=== PATIENT | female | born 1970 | race Caucasian/White ===

== ENCOUNTER 2016-12-27 22:52 | Emergency (ER) | payer SELFPAY ==
[~2016-12-27] VITALS: Ht 156.2 cm; Wt 52.2 kg
[2016-12-27] MEDS ORDERED: IPRATRPIUM/ALBUTEROL 0.5/2.5MG 3 ML NEBU. ONE (23:23)
[2016-12-27] MEDS ORDERED: ALBUTEROL SULFATE 2.5 MG/3 ML NEBU. ONE (23:24)
[2016-12-27 23:28] LABS: BASO % 1 % (0-3); EOS % 1 % (0-3); HEMATOCRIT 43.9 % (36.0-47.0); HEMOGLOBIN 15.1 g/dL (12.0-15.5); LYMPH # 2.7 x10^3/uL (1.0-4.8); LYMPH % 30 % (24-48); MEAN CORPUSCULAR HEMOGLOBIN 33 pg (25-35); MEAN CORPUSCULAR HGB CONC 34 g/dL (31-37); MEAN CORPUSCULAR VOLUME 96 fL (79-100); MONO % 9 % (0-9); NEUT % 59 % (31-73); PLATELET COUNT 260 x10^3/uL (140-400); RED BLOOD COUNT 4.58 x10^6/uL (3.50-5.40); RED CELL DISTRIBUTION WIDTH 12.3 % (11.5-14.5); WHITE BLOOD COUNT 8.8 x10^3/uL (4.0-11.0)
[2016-12-27] MEDS ORDERED: ALBUTEROL SULFATE 2.5 MG/3 ML NEBU. NEB ONE (23:30)
[2016-12-27] MEDS ORDERED: fentaNYL PF VIAL 100 MCG/2 ML VIAL IV ONE (23:30)
[2016-12-27] MEDS ORDERED: DEXAMETHASONE SOD PHOS 20 MG/5 ML VIAL. IV ONE (23:30)
[2016-12-27] MEDS ORDERED: IPRATRPIUM/ALBUTEROL 0.5/2.5MG 3 ML NEBU. NEB ONE (23:30)
[2016-12-27] MEDS ORDERED: ASPIRIN ENTERIC COATED 325 MG TABLET.DR. PO ONE (23:30)
[2016-12-27] MEDS ORDERED: IV NORMAL SALINE 1000ML BAG 1,000 ML IV ONE (23:30)
[2016-12-27] MEDS ORDERED: KETOROLAC TROMETHAMINE 30 MG/ML INJ. IV ONE (23:30)
[2016-12-27 23:38] LABS: INR 0.9 (0.8-1.1); PARTIAL THROMBOPLASTIN TIME 32 SEC (24-38); PROTHROMBIN TIME PATIENT 11.9 SEC (11.7-14.0)
[2016-12-27 23:41] LABS: BILIRUBIN,URINE NEGATIVE (NEG); GLUCOSE,URINE NEGATIVE (NEG); NITRITE,URINE NEGATIVE (NEG); PH,URINE 6.5; PROTEIN,URINE NEGATIVE (NEG-TRACE); UROBILINOGEN,URINE 0.2 mg/dL (0.2 mg/dL)
[2016-12-27 23:41] LABS: CALCIUM 9.1 mg/dL (8.5-10.1); CREATININE 0.6 mg/dL (0.6-1.0); GFR 108.1; POTASSIUM 3.3 mmol/L (3.5-5.1)
[2016-12-27 23:47] LABS: ALBUMIN 3.9 g/dL (3.4-5.0); ALBUMIN/GLOBULIN RATIO 1.1 (1.0-1.7); MAGNESIUM 1.8 mg/dL (1.8-2.4); TOTAL BILIRUBIN 0.3 mg/dL (0.2-1.0); TOTAL PROTEIN 7.4 g/dL (6.4-8.2)
[2016-12-27 23:49] LABS: BACTERIA,URINE 0 /HPF (0-FEW); RBC,URINE OCC /HPF (0-2); SQUAMOUS EPITHELIAL CELL,UR FEW /LPF
--- NOTE | 2016-12-28 00:05 | PHYS DOC ---
Past Medical History Past Medical History: Unknown Past Surgical History: Other Additional Past Surgical Histo: Rt finger Alcohol Use: None Drug Use: None Adult General Chief Complaint Chief Complaint: CHEST PAIN HPI HPI Patient is a 46 year old female presenting to the emergency department for evaluation of chest pain shortness of breath and not feeling well. The chest pain started approximately 2 hours prior to arrival while at rest and says it is tight in her left upper chest but sharp stabbing pain in her left lower chest. He says that it makes her feel somewhat short of breath but there is no nausea vomiting or diaphoresis. Patient denies any history of diabetes hypertension high cholesterol or family history of heart disease but she says that she does smoke cigarettes. Denies any prior cardiac risk stratification. She is in no obvious distress with normal vital signs except for her hypertension. Review of Systems Review of Systems Constitutional: Denies fever or chills [] Eyes: Denies change in visual acuity, redness, or eye pain [] HENT: Denies nasal congestion or sore throat [] Respiratory: + cough and shortness of breath [] Cardiovascular: + CP GI: Denies abdominal pain, nausea, vomiting, bloody stools or diarrhea [] : Denies dysuria or hematuria [] Musculoskeletal: Denies back pain or joint pain [] Integument: Denies rash or skin lesions [] Neurologic: Denies headache, focal weakness or sensory changes [] Current Medications Current Medications Current Medications Medications (Trade) Dose Ordered Sig/Cassi Start Time Stop Time Status Last Admin Dose Admin Albuterol Sulfate (Ventolin Neb Soln) 2.5 mg STK-MED ONCE 12/27/16 23:24 12/27/16 23:25 DC Albuterol/ Ipratropium (Duoneb) 3 ml STK-MED ONCE 12/27/16 23:23 12/27/16 23:24 DC Aspirin (Ecotrin) 325 mg 1X ONCE 12/27/16 23:30 12/27/16 23:31 DC 12/28/16 00:09 325 MG Dexamethasone Sodium Phosphate (Decadron) 10 mg 1X ONCE 12/27/16 23:30 12/27/16 23:31 DC 12/28/16 00:06 10 MG Fentanyl Citrate (Fentanyl 2ml Vial) 100 mcg 1X ONCE 12/27/16 23:30 12/27/16 23:31 DC 12/28/16 00:09 100 MCG Ketorolac Tromethamine (Toradol) 30 mg 1X ONCE 12/27/16 23:30 12/27/16 23:31 DC 12/28/16 00:01 30 MG Potassium Chloride (Klor-Con) 40 meq 1X ONCE 12/28/16 00:30 12/28/16 00:31 DC 12/28/16 00:51 40 MEQ Sodium Chloride 1,000 ml @ 1,000 mls/hr 1X ONCE 12/27/16 23:30 12/28/16 00:29 DC 12/28/16 00:00 1,000 MLS/HR Allergies Allergies Allergies Coded Allergies Type Severity Reaction Last Updated Verified No Known Drug Allergies 02/22/15 No Physical Exam Physical Exam Constitutional: Well developed, well nourished, no acute distress, non-toxic appearance. [] HENT: Normocephalic, atraumatic, bilateral external ears normal, oropharynx moist, no oral exudates, nose normal. [] Eyes: PERRLA, EOMI, conjunctiva normal, no discharge. [] Neck: Normal range of motion, no tenderness, supple, no stridor. [] Cardiovascular:Heart rate regular rhythm, no murmur [] Lungs & Thorax: Bilateral breath sounds decreased bilaterally with expiratory wheezes noted Abdomen: Bowel sounds normal, soft, no tenderness, no masses, no pulsatile masses. [] Skin: Warm, dry, no erythema, no rash. [] Back: No tenderness, no CVA tenderness. [] Extremities: No tenderness, no cyanosis, no clubbing, ROM intact, no edema. [] Neurologic: Alert and oriented X 3, normal motor function, normal sensory function, no focal deficits noted. [] Current Patient Data Vital Signs Vital Signs Date Time Temp Pulse Resp B/P (MAP) Pulse Ox O2 Delivery O2 Flow Rate FiO2 12/28/16 00:09 22 96 Room Air 12/27/16 23:05 98.0 100 202/112 (142) 98.0 Lab Values Laboratory Tests Test 12/27/16 23:06 12/27/16 23:19 Urine Collection Type Unknown Urine Color Yellow Urine Clarity Clear Urine pH 6.5 Urine Specific [place] 1.010 Urine Protein Negative mg/dL (NEG-TRACE) Urine Glucose (UA) Negative mg/dL (NEG) Urine Ketones (Stick) Negative mg/dL (NEG) Urine Blood Negative (NEG) Urine Nitrite Negative (NEG) Urine Bilirubin Negative (NEG) Urine Urobilinogen Dipstick 0.2 mg/dL (0.2 mg/dL) Urine Leukocyte Esterase Negative (NEG) Urine RBC Occ /HPF (0-2) Urine WBC 1-4 /HPF (0-4) Urine Squamous Epithelial Cells Few /LPF Urine Bacteria 0 /HPF (0-FEW) Urine Mucus Slight /LPF White Blood Count 8.8 x10^3/uL (4.0-11.0) Red Blood Count 4.58 x10^6/uL (3.50-5.40) Hemoglobin 15.1 g/dL (12.0-15.5) Hematocrit 43.9 % (36.0-47.0) Mean Corpuscular Volume 96 fL (79-100) Mean Corpuscular Hemoglobin 33 pg (25-35) Mean Corpuscular Hemoglobin Concent 34 g/dL (31-37) Red Cell Distribution Width 12.3 % (11.5-14.5) Platelet Count 260 x10^3/uL (140-400) Neutrophils (%) (Auto) 59 % (31-73) Lymphocytes (%) (Auto) 30 % (24-48) Monocytes (%) (Auto) 9 % (0-9) Eosinophils (%) (Auto) 1 % (0-3) Basophils (%) (Auto) 1 % (0-3) Neutrophils # (Auto) 5.3 x10^3uL (1.8-7.7) Lymphocytes # (Auto) 2.7 x10^3/uL (1.0-4.8) Monocytes # (Auto) 0.8 x10^3/uL (0.0-1.1) Eosinophils # (Auto) 0.1 x10^3/uL (0.0-0.7) Basophils # (Auto) 0.0 x10^3/uL (0.0-0.2) Prothrombin Time 11.9 SEC (11.7-14.0) Prothrombin Time INR 0.9 (0.8-1.1) PTT 32 SEC (24-38) D-Dimer (Agnieszka) < 0.27 ug/mlFEU Sodium Level 140 mmol/L (136-145) Potassium Level 3.3 mmol/L (3.5-5.1) L Chloride Level 101 mmol/L (98-107) Carbon Dioxide Level 27 mmol/L (21-32) Anion Gap 12 (6-14) Blood Urea Nitrogen 14 mg/dL (7-20) Creatinine 0.6 mg/dL (0.6-1.0) Estimated GFR (Cockcroft-Gault) 108.1 BUN/Creatinine Ratio 23 (6-20) H Glucose Level 93 mg/dL (70-99) Calcium Level 9.1 mg/dL (8.5-10.1) Magnesium Level 1.8 mg/dL (1.8-2.4) Total Bilirubin 0.3 mg/dL (0.2-1.0) Aspartate Amino Transferase (AST) 18 U/L (15-37) Alanine Aminotransferase (ALT) 19 U/L (14-59) Alkaline Phosphatase 76 U/L (46-116) Creatine Kinase 68 U/L (26-192) Troponin I Quantitative < 0.017 ng/mL (0.000-0.055) CG-Ocb-V-Type Natriuretic Peptide 144 pg/mL (0-124) H Total Protein 7.4 g/dL (6.4-8.2) Albumin 3.9 g/dL (3.4-5.0) Albumin/Globulin Ratio 1.1 (1.0-1.7) Lipase 233 U/L (73-393) Laboratory Tests 12/27/16 23:19 Laboratory Tests 12/27/16 23:19 EKG EKG Normal sinus rhythm at 93 bpm with normal axis no obvious ST elevation or depression and normal T waves. Radiology/Procedures Radiology/Procedures Normal mediastinum and normal heart size no obvious free air pneumothorax or opacity. Course & Med Decision Making Course & Med Decision Making Patient with heart score equal to 2 based off age and risk factors. Pain is more consistent with bronchospasm given her exam and some pleurisy as well. She had repeat troponin and EKG are both unchanged and negative. Patient's pain is completely resolved with treatment here and she was asymptomatic for the last 3 hours of her emergency department stay. Given patient appears well with normal vital signs benign physical exam and workup she will be discharged with instructions to follow with the dry drug worker and textbook associate within the next 72 hours take an aspirin daily not exert herself and to come back to the ER sooner with any worsening pain shortness of breath or other general concerns. Patient verbalized understanding of the above instructions. Dragon Disclaimer Dragon Disclaimer This electronic medical record was generated, in whole or in part, using a voice recognition dictation system. Departure Departure Impression: Primary Impression: Chest pain Additional Impression: Wheezing Disposition: HOME, SELF-CARE Condition: GOOD Referrals: YOAV PACHECO MD, SABATO MD Patient Instructions: Chest Pain (Nonspecific) Additional Instructions: Do not exert herself and take an aspirin daily. Follow with the long and heart doctors and come back to the ER sooner with any new worsening pain shortness of breath or other general concerns. Scripts Hydrocodone/Apap 5-325 (NORCO 5-325 TABLET) 1 Each Tablet 1 TAB PO PRN Q6HRS Y for PAIN, #10 TAB 0 Refills Prov: CHANNING BYRNE DO 12/28/16 Albuterol Sulfate (PROAIR HFA INHALER) 8.5 Gm Hfa.aer.ad 1 PUFF INH Q4HRS Y for SHORTNESS OF BREATH, #1 INHALER 0 Refills Prov: CHANNING BYRNE DO 12/28/16 Problem Qualifiers Primary Impression: Chest pain Chest pain type: intercostal pain Qualified Codes: R07.82 - Intercostal pain CHANNING BYRNE DO Dec 28, 2016 00:05
[2016-12-28] MEDS ORDERED: POTASSIUM CHLORIDE 20 MEQ TABLET.ER. PO ONE (00:30)
[2016-12-28 02:27] VITALS: BP 151/92
[2016-12-28] MEDS ORDERED: PROAIR HFA8.5 GM INH (02:33)
[2016-12-28] MEDS ORDERED: HYDR-971 PO (02:33)
--- NOTE | 2016-12-28 06:37 | EKG ---
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
--- NOTE | 2016-12-28 06:37 | EKG ---
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
--- NOTE | 2016-12-28 07:38 | RAD ---
Indication shortness of air. A single view of the chest was obtained. Comparison is made to an exam 02/22/2015. The heart and pulmonary vessels appear normal. The mediastinum appears normal. The lungs are clear. There has not been a significant change when compared to the previous exam. IMPRESSION: No acute or focal process. No significant change
== END 2016-12-28 02:45 | disposition home or self-care (01) ==
LOC: ER 22:52
DX: R07.82 Intercostal pain (principal); R06.2 Wheezing; F17.210 Nicotine dependence, cigarettes, uncomplicated
CPT/HCPCS: 36415; 71010; 80053; 81001; 82550; 83690; 83735; 83880; 84484; 85027; 85379; 85610; 85730; 93005; 94250; 94640; 96361; 96374; 96375; 99285; J1100; J1885; J3010; J7030; J7620

== ENCOUNTER 2017-05-02 08:09 | Emergency (ER) | payer SELFPAY ==
[~2017-05-02] VITALS: Ht 154.9 cm; Wt 52.2 kg
[~2017-05-02 08:09] MED LIST: HYDR-971 PO; PROAIR HFA8.5 GM INH
[2017-05-02] MEDS ORDERED: KETOROLAC 60 MG/2 ML INJ. IM ONE (08:30)
--- NOTE | 2017-05-02 08:40 | PHYS DOC ---
Past Medical History Past Medical History: Unknown Past Surgical History: Other Additional Past Surgical Histo: Rt finger Alcohol Use: None Drug Use: None Adult General Chief Complaint Chief Complaint: dental pain HPI HPI Patient is a 47 year old female who presents with ongoing increasing left side dental pain from erupting wisdom teeth # 16 and 17. Pt does not currently have a dental appointment arranged by says she has a number she plans to call. Fevers reported when symptoms started, but nothing in recent days. Pain localized to area of the teeth, no jaw pain. Pt denies known history of HTN but it does run in the family. Reports chronic sob with 1pack per day of smoking. Denies any chest pain. Review of Systems Review of Systems Constitutional: Denies fever or chills [] Eyes: Denies change in visual acuity, redness, or eye pain [] HENT: Denies nasal congestion or sore throat [] Respiratory: Denies cough Cardiovascular: No additional information not addressed in HPI [] GI: Denies abdominal pain, nausea, vomiting, bloody stools or diarrhea [] : Denies dysuria or hematuria [] Musculoskeletal: Denies back pain or joint pain [] Integument: Denies rash or skin lesions [] Neurologic: Denies headache, focal weakness or sensory changes [] Current Medications Current Medications Current Medications Medications (Trade) Dose Ordered Sig/[facility] Start Time Stop Time Status Last Admin Dose Admin Clonidine HCl (Catapres) 0.1 mg 1X ONCE 05/02/17 08:45 05/02/17 08:49 DC 05/02/17 09:01 0.1 MG Ketorolac Tromethamine (Toradol Im) 60 mg 1X ONCE 05/02/17 08:30 05/02/17 08:34 DC 05/02/17 09:02 60 MG Allergies Allergies Allergies Coded Allergies Type Severity Reaction Last Updated Verified No Known Drug Allergies 02/22/15 No Physical Exam Physical Exam Constitutional: Well developed, well nourished, no acute distress, non-toxic appearance. [] HENT: Normocephalic, atraumatic, bilateral external ears normal, oropharynx moist, no oral exudates, nose normal.erupting teeth # 16 and 17 with 16 erupting laterally, no trismus, no erythema or increased warmth, no fluctuance, no facials swelling Eyes: PERRLA, EOMI, conjunctiva normal, no discharge. [] Neck: Normal range of motion, no tenderness, supple, no stridor. [] Cardiovascular:Heart rate slightly tachy with regular rhythm, no murmur [] Lungs & Thorax: Bilateral breath sounds clear to auscultation, no wheeze or crackles Abdomen:soft, no tenderness, no masses, no pulsatile masses. [] Skin: Warm, dry, no erythema, no rash. [] Back: No tenderness, no CVA tenderness. [] Extremities: No tenderness, no cyanosis, no clubbing, ROM intact, no edema. [] Neurologic: Alert and oriented X 3, normal motor function, normal sensory function, no focal deficits noted. [] Current Patient Data Vital Signs Vital Signs Date Time Temp Pulse Resp B/P (MAP) Pulse Ox O2 Delivery O2 Flow Rate FiO2 05/02/17 09:01 97 201/111 05/02/17 08:20 98.2 16 95 Room Air 98.2 Lab Values Laboratory Tests Test 05/02/17 09:19 POC Hemoglobin 17.7 g/dL (12-15) H POC Hematocrit 52 % (36-40) H POC Sodium 138 mmol/L (135-145) POC Potassium 4.1 mmol/L (3.5-5.0) POC Chloride 99 mmol/L (98-110) POC Total CO2 27 mmol/L (23-32) Anion Gap 17 mmol/L (6-14) H POC Blood Urea Nitrogen 11 mg/dL (8-26) POC Creatinine 0.6 mg/dL (0.5-1.4) Glucose Level 90 mg/dL (70-99) POC Ionized Calcium (Agnes) 1.16 mmol/L (1.13-1.32) Laboratory Tests 05/02/17 09:19 EKG EKG [] Radiology/Procedures Radiology/Procedures [] Course & Med Decision Making Course & Med Decision Making Pertinent Labs and Imaging studies reviewed. (See chart for details) pt with pain 2/2 to erupting wisdom teeth, no perichorinitis present, no trismus. Pt does have poor dentition throughout. Pt with significant elevated BP. I counseled pt on need to start HTN meds and f /u with PCP, also to stop smoking. I stat chem performed prior to initiating meds. Pt would like to drive home and toradol IM given. Cr WNL. DC'd with RX for lisinopril, instructions to f/u with PCP. Ibuprofen, peridex, and few percocet tabs given for breakthrough pain. No signs of infection therefore no antibiotics given. counseled on smoking cessation/f/u with HTN Yanet Disclaimer Yanet Disclaimer This electronic medical record was generated, in whole or in part, using a voice recognition dictation system. Departure Departure Impression: Primary Impression: Pain, dental Additional Impression: Hypertension Disposition: 01 HOME, SELF-CARE Condition: STABLE Referrals: NO PCP (PCP) Scripts Oxycodone/Apap 5-325 (PERCOCET 5-325 MG TABLET) 1 Each Tablet 1-2 EACH PO PRN TID Y for breakthrough pain, #12 TAB pain Prov: LIZ MESA MD 05/02/17 Lisinopril (LISINOPRIL) 20 Mg Tablet 1 TAB PO DAILY, #30 TAB 0 Refills Prov: LIZ MESA MD 05/02/17 Ibuprofen (IBUPROFEN) 600 Mg Tablet 600 MG PO PRN Q6HRS Y for PAIN, #20 TAB take with food or milk Prov: LIZ MESA MD 05/02/17 Chlorhexidine Gluconate (PERIDEX) 15 Ml Mouthwash 15 ML PO BID, #473 ML 3 Refills swish for 30 seconds and spit Prov: LIZ MSEA MD 05/02/17 Problem Qualifiers LIZ MESA MD May 02, 2017 08:40
[2017-05-02] MEDS ORDERED: cloNIDine HCL 0.1 MG TABLET PO ONE (08:45)
[2017-05-02 09:32] LABS: POTASSIUM ISTAT 4.1 mmol/L (3.5-5.0)
[2017-05-02] MEDS ORDERED: IBUP-1007 PO (09:36)
[2017-05-02] MEDS ORDERED: OXYC-323 PO (09:36)
[2017-05-02] MEDS ORDERED: LISI-334 PO (09:36)
[2017-05-02] MEDS ORDERED: CHLO15MO2 PO (09:36)
[2017-05-02 10:00] VITALS: BP 194/102
== END 2017-05-02 10:00 | disposition home or self-care (01) ==
LOC: ER 08:09
DX: K08.89 Other specified disorders of teeth and supporting structures (principal); I10 Essential (primary) hypertension; R06.02 Shortness of breath; F17.200 Nicotine dependence, unspecified, uncomplicated
CPT/HCPCS: 80047; 85014; 85018; 96372; 99283; J1885; 36415

== ENCOUNTER 2018-04-04 19:01 | Emergency (ER) | payer SELFPAY ==
[~2018-04-04] VITALS: Ht 157.5 cm; Wt 48.5 kg
[~2018-04-04 19:01] MED LIST changes: +CHLO15MO2 PO; +IBUP-1007 PO; +LISI-334 PO; +OXYC-323 PO
[2018-04-04 19:05] VITALS: BP 161/97
[2018-04-04] MEDS ORDERED: PENI500T PO (19:11)
--- NOTE | 2018-04-04 19:11 | PHYS DOC ---
Past Medical History Past Medical History: No Pertinent History, Unknown Past Surgical History: Other Additional Past Surgical Histo: Rt finger Alcohol Use: None Drug Use: None Adult General Chief Complaint Chief Complaint: DENTAL PROBLEM HPI HPI Patient is a 48 year old female who presents with right upper and right lower molar dental pain x 3 days. PatieNT has right sided facial swelling and the throbbing pain radiates to right ear. Patient rates her pain at 9/10. Review of Systems Review of Systems Constitutional: Denies fever or chills [] Eyes: Denies change in visual acuity, redness, or eye pain [] HENT: Right upper and lower molar dental pain. Denies nasal congestion or sore throat [] Respiratory: Denies cough or shortness of breath [] Cardiovascular: No additional information not addressed in HPI [] GI: Denies abdominal pain, nausea, vomiting, bloody stools or diarrhea [] : Denies dysuria or hematuria [] Musculoskeletal: Denies back pain or joint pain [] Integument: Denies rash or skin lesions [] Neurologic: Denies headache, focal weakness or sensory changes [] Endocrine: Denies polyuria or polydipsia [] All other systems were reviewed and found to be within normal limits, except as documented in this note. Allergies Allergies Allergies Coded Allergies Type Severity Reaction Last Updated Verified No Known Drug Allergies 02/22/15 No Physical Exam Physical Exam Constitutional: Well developed, well nourished, no acute distress, non-toxic appearance. [] HENT: Right upper and lower molar dental caries. Upper and lower gum line is red around the effected teath. Normocephalic, atraumatic, bilateral external ears normal, oropharynx moist, no oral exudates, nose normal. [] Eyes: PERRLA, EOMI, conjunctiva normal, no discharge. [] Neck: Normal range of motion, no tenderness, supple, no stridor. [] Cardiovascular:Heart rate regular rhythm, no murmur [] Lungs & Thorax: Bilateral breath sounds clear to auscultation [] Abdomen: Bowel sounds normal, soft, no tenderness, no masses, no pulsatile masses. [] Skin: Warm, dry, no erythema, no rash. [] Back: No tenderness, no CVA tenderness. [] Extremities: No tenderness, no cyanosis, no clubbing, ROM intact, no edema. [] Neurologic: Alert and oriented X 3, normal motor function, normal sensory function, no focal deficits noted. [] Psychologic: Affect normal, judgement normal, mood normal. [] Current Patient Data Vital Signs Vital Signs Date Time Temp Pulse Resp B/P (MAP) Pulse Ox O2 Delivery O2 Flow Rate FiO2 04/04/18 19:05 98.4 88 16 161/97 (118) 98 Room Air 98.4 EKG EKG [] Radiology/Procedures Radiology/Procedures [] Course & Med Decision Making Course & Med Decision Making Patient is a 48 year old female who presents with right upper and right lower molar dental pain x 3 days. Patient has right sided facial swelling and the throbbing pain radiates to right ear. Patient rates her pain at 9/10. Upon examination patient has dental caries in the upper and lower back molar with some gum redness. Patient is given a prescription for penicillin V and some Solway for pain. Patient is also given dental resources. Patient is afebrile. [] Staff Physician Addendum: I was working in the ER during the course of this patient's visit. I was available for consultation as needed, but I was not directly involved in the care of this patient. Dragon Disclaimer Dragon Disclaimer This electronic medical record was generated, in whole or in part, using a voice recognition dictation system. Departure Departure Impression: Primary Impression: Dental caries Disposition: 01 HOME, SELF-CARE Condition: STABLE Referrals: NO PCP (PCP) Patient Instructions: Dental Caries Additional Instructions: Take Ibuprofen or Naproxen for pain. Take all of the antibiotic. Follow up with a dentist. Scripts Hydrocodone/Apap 5-325 (NORCO 5-325 TABLET) 1 Each Tablet 1 TAB PO PRN Q6HRS PRN for PAIN, #6 TAB 0 Refills Prov: FRANKIE COOPER GRANITE FABRICATOR 04/04/18 Penicillin V Potassium (PENICILLIN V POTASSIUM) 500 Mg Tablet 500 MG PO QID for 7 Days, #28 TAB 0 Refills Prov: FRANKIE COOPER GRANITE FABRICATOR 04/04/18 FRANKIE COOPER GRANITE FABRICATOR Apr 04, 2018 19:11 NORI MARTÍNEZ MD Apr 05, 2018 05:08
[2018-04-04] MEDS ORDERED: HYDR-971 PO (19:14)
== END 2018-04-04 19:17 | disposition home or self-care (01) ==
LOC: ER 19:01
DX: K02.9 Dental caries, unspecified (principal)
CPT/HCPCS: 99283

== ENCOUNTER 2018-07-22 13:28 | Emergency (ER) | payer SELFPAY ==
[~2018-07-22] VITALS: Ht 154.9 cm; Wt 48.5 kg
[~2018-07-22 13:28] MED LIST changes: +ALBU2.5V8 INH; +HYDR-3164 PO; -HYDR-971 PO; -OXYC-323 PO; +OXYC1TAB15 PO; +PENI500T PO; -PROAIR HFA8.5 GM INH
[2018-07-22 14:36] VITALS: BP 115/78
[2018-07-22] MEDS ORDERED: IPRATRPIUM/ALBUTEROL 0.5/2.5MG 3 ML NEBU. NEB ONE (14:45)
[2018-07-22] MEDS ORDERED: BENZONATATE 100 MG CAPSULE. PO ONE (14:45)
[2018-07-22] MEDS ORDERED: predniSONE 10 MG TABLET PO ONE (14:45)
[2018-07-22] MEDS ORDERED: PRED50TA PO (15:25)
[2018-07-22] MEDS ORDERED: FLUT9.9S NS (15:25)
[2018-07-22] MEDS ORDERED: CETI10TA22 PO (15:25)
[2018-07-22] MEDS ORDERED: BENZ100C PO (15:25)
[2018-07-22] MEDS ORDERED: VENTOLIN HFA18 GM INH (15:25)
--- NOTE | 2018-07-22 15:25 | PHYS DOC ---
Past Medical History Past Medical History: Asthma, Hypertension, Unknown Past Surgical History: Other Additional Past Surgical Histo: Rt finger Alcohol Use: None Drug Use: None Adult General Chief Complaint Chief Complaint: COUGH HPI HPI Patient is a 48 year old female with history of asthma, hypertension, allergies , who presents today complaining of cough and nasal congestion that began yesterday. She states she tried using her inhaler with no relief. Denies any fever. Review of Systems Review of Systems Constitutional: Denies fever or chills [] Eyes: Denies change in visual acuity, redness, or eye pain [] HENT: Reports nasal congestion, denies sore throat [] Respiratory: Reports cough, denies shortness of breath [] Cardiovascular: No additional information not addressed in HPI [] GI: Denies abdominal pain, nausea, vomiting, bloody stools or diarrhea [] : Denies dysuria or hematuria [] Musculoskeletal: Denies back pain or joint pain [] Integument: Denies rash or skin lesions [] Neurologic: Denies headache, focal weakness or sensory changes [] All other systems were reviewed and found to be within normal limits, except as documented in this note. Current Medications Current Medications Current Medications Medications (Trade) Dose Ordered Sig/Cassi Start Time Stop Time Status Last Admin Dose Admin Albuterol/ Ipratropium (Duoneb) 3 ml 1X ONCE 07/22/18 14:45 07/22/18 14:46 DC 07/22/18 15:06 3 ML Benzonatate (Tessalon Perle) 100 mg 1X ONCE 07/22/18 14:45 07/22/18 14:46 DC 07/22/18 14:45 100 MG Prednisone (Prednisone) 50 mg 1X ONCE 07/22/18 14:45 07/22/18 14:46 DC 07/22/18 14:45 50 MG Allergies Allergies Allergies Coded Allergies Type Severity Reaction Last Updated Verified No Known Drug Allergies 02/22/15 No Physical Exam Physical Exam Constitutional: Well developed, well nourished, no acute distress, non-toxic appearance. [] HENT: Normocephalic, atraumatic, bilateral external ears normal, oropharynx moist, no oral exudates, nose normal. [] Eyes: PERRLA, EOMI, conjunctiva normal, no discharge. [] Neck: Normal range of motion, no tenderness, supple, no stridor. [] Cardiovascular:Heart rate regular rhythm, no murmur [] Lungs & Thorax: Patient is actively coughing in the ED, diminished breath sounds to posterior lung bases. Abdomen: Bowel sounds normal, soft, no tenderness, no masses, no pulsatile masses. [] Skin: Warm, dry, no erythema, no rash. [] Back: No tenderness, no CVA tenderness. [] Extremities: No tenderness, no cyanosis, no clubbing, ROM intact, no edema. [] Neurologic: Alert and oriented X 3, normal motor function, normal sensory function, no focal deficits noted. [] Psychologic: Affect normal, judgement normal, mood normal. [] Current Patient Data Vital Signs Vital Signs Date Time Temp Pulse Resp B/P (MAP) Pulse Ox O2 Delivery O2 Flow Rate FiO2 07/22/18 15:06 97 Room Air 07/22/18 14:36 98.6 118 20 115/78 (90) 98.6 EKG EKG [] Radiology/Procedures Radiology/Procedures [] Course & Med Decision Making Course & Med Decision Making Pertinent Labs and Imaging studies reviewed. (See chart for details) This is a 48-year-old female patient with history of asthma and seasonal allergies presents to the ED today with cough and nasal congestion since yesterday. Patient was given a DuoNeb treatment, prednisone. Will be discharged with albuterol inhaler, prednisone Tessalon Perles. Follow-up with PCP in 1-2 weeks. Dragon Disclaimer Dragon Disclaimer This electronic medical record was generated, in whole or in part, using a voice recognition dictation system. Departure Departure Impression: Primary Impression: Acute bronchitis Additional Impressions: Asthma exacerbation Upper respiratory infection Seasonal allergies Disposition: 01 HOME, SELF-CARE Condition: STABLE Referrals: UNKNOWN PCP NAME (PCP) Patient Instructions: Acute Bronchitis, Asthma, Adult, Upper Respiratory Infection, Adult, [id number] Additional Instructions: You were evaluated in the emergency room for asthma exacerbation, acute bronchitis and seasonal allergies. Take the prescribed medications as ordered. Follow-up with your own doctor in the course of next week of this week. Come back to the ED at any point symptoms worsen. Scripts Benzonatate (TESSALON PERLE) 100 Mg Capsule 1 CAP PO TID, #30 CAP Prov: MARC PINEDO [employer] 07/22/18 Albuterol Sulfate (VENTOLIN HFA INHALER) 18 Gm Hfa.aer.ad 2 PUFF INH Q4HRS for FOR ASTHMA, #1 INHALER 0 Refills Prov: MARC PINEDO CLAUDE 07/22/18 Benzonatate (TESSALON PERLE) 100 Mg Capsule 1 CAP PO TID, #30 CAP Prov: MARC PINEDO CLAUDE 07/22/18 Fluticasone Propionate (Flonase Allergy Relief) 9.9 Ml [place].susp 2 SPRAYS NS DAILY, #1 BOTTLE Prov: MARC PINEDO CLAUDE 07/22/18 Cetirizine Hcl (ZYRTEC) 10 Mg Tablet 1 TAB PO DAILY, #30 TAB 2 Refills Prov: MARC PINEDO CLAUDE 07/22/18 Prednisone (PREDNISONE) 50 Mg Tablet 1 TAB PO DAILY, #5 TAB Prov: MARC PINEDO CLAUDE 07/22/18 Attending Signature Attending Signature I have reviewed the PA/OWNER MANAGER's note and plan of care. I was available for consultation as needed during the patient's visit in the emergency department. I agree with the clinical impression, plan, and disposition. Problem Qualifiers Primary Impression: Acute bronchitis Bronchitis organism: unspecified organism Qualified Codes: J20.9 - Acute bronchitis, unspecified Additional Impressions: Asthma exacerbation Asthma severity: mild Asthma persistence: intermittent Qualified Codes: J45.21 - Mild intermittent asthma with (acute) exacerbation Upper respiratory infection URI type: unspecified URI Qualified Codes: J06.9 - Acute upper respiratory infection, unspecified MARC PINEDO CLAUDE Jul 22, 2018 15:25 JOSELITO ESTRELLA DO Jul 24, 2018 13:33
== END 2018-07-22 15:58 | disposition home or self-care (01) ==
LOC: ER 13:28
DX: J45.21 Mild intermittent asthma with (acute) exacerbation (principal); J20.9 Acute bronchitis, unspecified; J06.9 Acute upper respiratory infection, unspecified; J30.2 Other seasonal allergic rhinitis; I10 Essential (primary) hypertension
CPT/HCPCS: 94640; 99283; J7512; J7620

== ENCOUNTER 2019-05-16 15:35 | Emergency (ER) | payer SELFPAY ==
[~2019-05-16] VITALS: Ht 154.9 cm; Wt 48.5 kg
[~2019-05-16 15:35] MED LIST changes: +BENZ100C PO; +CETI10TA22 PO; +FLUT9.9S NS; +PRED50TA PO; +VENTOLIN HFA18 GM INH
[2019-05-16] MEDS ORDERED: KETOROLAC 60 MG/2 ML VIAL. IM ONE (15:45)
[2019-05-16] MEDS ORDERED: ASPIRIN CHEWABLE 81 MG TABLET. PO ONE (15:45)
--- NOTE | 2019-05-16 16:04 | EKG ---
[facility] [address] [place] [address] Test Date: 2019-05-16 Test Time: 15:45:40 Pat Name: JOE SARABIA Department: Room: Gender: F Frame Nailer: : 1970 Requested By: GERALDINE KHALIL Order Number: [id number] Reading MD: Measurements Intervals [place] Rate: 126 P: 42 VA: 136 QRS: 60 QRSD: 84 T: 49 QT: 310 QTc: 455 Interpretive Statements SINUS TACHYCARDIA ST & T ABNORMALITY, CONSIDER INFERIOR ISCHEMIA OR LEFT VENTRICULAR STRAIN ABNORMAL ECG No previous ECG available for comparison
[2019-05-16 16:08] LABS: BASO % 0 % (0-3); EOS % 0 % (0-3); HEMATOCRIT 40.8 % (36.0-47.0); HEMOGLOBIN 14.1 g/dL (12.0-15.5); LYMPH # 0.8 x10^3/uL (1.0-4.8); LYMPH % 10 % (24-48); MEAN CORPUSCULAR HEMOGLOBIN 33 pg (25-35); MEAN CORPUSCULAR HGB CONC 35 g/dL (31-37); MEAN CORPUSCULAR VOLUME 95 fL (79-100); MONO # 0.1 x10^3/uL (0.0-1.1); MONO % 2 % (0-9); NEUT # 6.4 x10^3/uL (1.8-7.7); NEUT % 88 % (31-73); PLATELET COUNT 312 x10^3/uL (140-400); RED BLOOD COUNT 4.32 x10^6/uL (3.50-5.40); RED CELL DISTRIBUTION WIDTH 12.2 % (11.5-14.5); WHITE BLOOD COUNT 7.3 x10^3/uL (4.0-11.0)
[2019-05-16 16:22] LABS: CALCIUM 9.5 mg/dL (8.5-10.1); CREATININE 0.8 mg/dL (0.6-1.0); GFR 76.6; POTASSIUM 3.3 mmol/L (3.5-5.1)
--- NOTE | 2019-05-16 16:23 | PHYS DOC ---
Past Medical History Past Medical History: Asthma, Hypertension, Unknown Past Surgical History: Other Additional Past Surgical Histo: Rt finger, hernia Alcohol Use: Occasionally Drug Use: None Attending Signature I have participated in the care of this patient and I have reviewed and agree with all pertinent clinical information above including history, exam, and recommendations. Adult General Chief Complaint Chief Complaint: CHEST WALL PAIN HPI HPI 41-year-old female presents to the emergency department with complaints of cough 3-4 weeks, left-sided chest pain, patient denies any nausea, vomiting, diarrhea, fever, headache, visual changes or abdominal pain. Patient does smoke, she has a history of asthma. Review of Systems Review of Systems Constitutional: Denies fever or chills [] Eyes: Denies change in visual acuity, redness, or eye pain [] HENT: congestion Respiratory: + cough, intermittent SOB Cardiovascular: No additional information not addressed in HPI [] GI: Denies abdominal pain, nausea, vomiting, bloody stools or diarrhea [] Musculoskeletal: Denies back pain or joint pain [] Integument: Denies rash or skin lesions [] Neurologic: Denies headache, focal weakness or sensory changes [] All other systems were reviewed and found to be within normal limits, except as documented in this note. Current Medications Current Medications Current Medications Medications (Trade) Dose Ordered Sig/Cassi Start Time Stop Time Status Last Admin Dose Admin Aspirin (Children'S Aspirin) 324 mg 1X ONCE 05/16/19 15:45 05/16/19 15:46 DC 05/16/19 16:37 324 MG Ketorolac Tromethamine (Toradol 30mg Vial) 30 mg 1X ONCE 05/16/19 16:30 05/16/19 16:31 DC 05/16/19 16:38 30 MG Ketorolac Tromethamine (Toradol Im) 60 mg 1X ONCE 05/16/19 15:45 05/16/19 15:46 Cancel Sodium Chloride 1,000 ml @ 1,000 mls/hr 1X ONCE 05/16/19 16:30 05/16/19 17:29 DC 05/16/19 16:25 1,000 MLS/HR Allergies Allergies Allergies Coded Allergies Type Severity Reaction Last Updated Verified No Known Drug Allergies 02/22/15 No Physical Exam Physical Exam Constitutional: Well developed, well nourished, no acute distress, non-toxic appearance. [] HENT: Normocephalic, atraumatic, bilateral external ears normal, oropharynx moist, no oral exudates, nose normal. [] Eyes: PERRLA, EOMI, conjunctiva normal, no discharge. [] Cardiovascular:Heart rate regular rhythm, no murmur [] Lungs & Thorax: Bilateral breath sounds clear to auscultation [] Abdomen: Bowel sounds normal, soft, no tenderness, no masses, no pulsatile masses. [] Skin: Warm, dry, no erythema, no rash. [] Back: No tenderness, no CVA tenderness. [] Extremities: No tenderness, no edema. [] Neurologic: Alert and oriented X 3, no focal deficits noted. [] Psychologic: Affect normal, judgement normal, mood normal. [] Current Patient Data Vital Signs Vital Signs Date Time Temp Pulse Resp B/P (MAP) Pulse Ox O2 Delivery O2 Flow Rate FiO2 05/16/19 17:00 110 20 137/86 (103) 96 Room Air 05/16/19 15:40 97.2 97.2 Lab Values Laboratory Tests Test 05/16/19 15:50 05/16/19 16:00 D-Dimer (Agnieszka) 0.31 ug/mlFEU (0.00-0.50) White Blood Count 7.3 x10^3/uL (4.0-11.0) Red Blood Count 4.32 x10^6/uL (3.50-5.40) Hemoglobin 14.1 g/dL (12.0-15.5) Hematocrit 40.8 % (36.0-47.0) Mean Corpuscular Volume 95 fL (79-100) Mean Corpuscular Hemoglobin 33 pg (25-35) Mean Corpuscular Hemoglobin Concent 35 g/dL (31-37) Red Cell Distribution Width 12.2 % (11.5-14.5) Platelet Count 312 x10^3/uL (140-400) Neutrophils (%) (Auto) 88 % (31-73) H Lymphocytes (%) (Auto) 10 % (24-48) L Monocytes (%) (Auto) 2 % (0-9) Eosinophils (%) (Auto) 0 % (0-3) Basophils (%) (Auto) 0 % (0-3) Neutrophils # (Auto) 6.4 x10^3/uL (1.8-7.7) Lymphocytes # (Auto) 0.8 x10^3/uL (1.0-4.8) L Monocytes # (Auto) 0.1 x10^3/uL (0.0-1.1) Eosinophils # (Auto) 0.0 x10^3/uL (0.0-0.7) Basophils # (Auto) 0.0 x10^3/uL (0.0-0.2) Segmented Neutrophils % 90 % (35-66) H Band Neutrophils % 3 % (0-9) Lymphocytes % 6 % (24-48) L Monocytes % 1 % (0-10) Platelet Estimate Adequate (ADEQUATE) Sodium Level 140 mmol/L (136-145) Potassium Level 3.3 mmol/L (3.5-5.1) L Chloride Level 100 mmol/L (98-107) Carbon Dioxide Level 25 mmol/L (21-32) Anion Gap 15 (6-14) H Blood Urea Nitrogen 8 mg/dL (7-20) Creatinine 0.8 mg/dL (0.6-1.0) Estimated GFR (Cockcroft-Gault) 76.6 BUN/Creatinine Ratio 10 (6-20) Glucose Level 178 mg/dL (70-99) H Calcium Level 9.5 mg/dL (8.5-10.1) Total Bilirubin 0.3 mg/dL (0.2-1.0) Aspartate Amino Transferase (AST) 17 U/L (15-37) Alanine Aminotransferase (ALT) 18 U/L (14-59) Alkaline Phosphatase 73 U/L (46-116) Troponin I Quantitative < 0.017 ng/mL (0.000-0.055) Total Protein 7.7 g/dL (6.4-8.2) Albumin 4.2 g/dL (3.4-5.0) Albumin/Globulin Ratio 1.2 (1.0-1.7) Laboratory Tests 05/16/19 16:00 Laboratory Tests 05/16/19 16:00 EKG EKG EKG reviewed heart rate 127, sinus tachycardia, normal axis, urgent secondary to rate.[] Interpretation Time: Interpretation time 1618 Radiology/Procedures Radiology/Procedures [facility] [address], [place] [id number] IMAGING REPORT Signed PATIENT: JOE SARABIA ACCOUNT: [id number] : 1970 LOCATION: ER AGE: 49 SEX: F EXAM STATUS: PRE ER ORD. PHYSICIAN: GERALDINE KHALIL MD REASON: left chest pain. starting IV@3:52 PROCEDURE: CHEST PA & LATERAL EXAM: Chest, 2 views. HISTORY: Chest pain. COMPARISON: 12/27/2016 FINDINGS: 2 views of the chest are obtained. There is no infiltrate, pleural effusion or pneumothorax. The heart is normal in size. There is hyperinflation due to respiratory effort or emphysema. IMPRESSION: No acute pulmonary finding. Electronically signed by: Grace Rivera MD (05/16/2019 4:23 PM) [facility] DICTATED and SIGNED BY: GRACE RIVERA MD DATE: 05/16/19 1623 [] Course & Med Decision Making Course & Med Decision Making Pertinent Labs and Imaging studies reviewed. (See chart for details) [] 41-year-old female presents to the emergency department with complaints of cough 3-4 weeks, left-sided chest pain, patient denies any nausea, vomiting, diarrhea, fever, headache, visual changes or abdominal pain. Patient does smoke, she has a history of asthma. Discussed findings with patient/family at bedside Chest xray without acute process identified Discussed return precautions Plan for abx therapy upon discharge Dragon Disclaimer Dragon Disclaimer This electronic medical record was generated, in whole or in part, using a voice recognition dictation system. Departure Departure Impression: Primary Impression: Bronchitis Additional Impression: Chest wall pain Disposition: 01 HOME, SELF-CARE Condition: STABLE Referrals: UNKNOWN PCP NAME (PCP) Patient Instructions: Acute Bronchitis, [id number], Chest Wall Pain, [id number] Additional Instructions: Recommend follow up with PCP 3 - 5 days Return to the ER with worsening symptoms, intractable pain, fever, altered mental status Tylenol/Motrin as needed for pain Take antibiotics as directed Scripts Doxycycline Hyclate (DOXYCYCLINE HYCLATE) 100 Mg Capsule 1 CAP PO BID, #14 CAP Prov: GERALDINE KHALIL MD 05/16/19 Problem Qualifiers GERALDINE KHALIL MD May 16, 2019 16:23
--- NOTE | 2019-05-16 16:27 | RAD ---
EXAM: Chest, 2 views. HISTORY: Chest pain. COMPARISON: 12/27/2016 FINDINGS: 2 views of the chest are obtained. There is no infiltrate, pleural effusion or pneumothorax. The heart is normal in size. There is hyperinflation due to respiratory effort or emphysema. IMPRESSION: No acute pulmonary finding. Electronically signed by: Grace Rivera MD (05/16/2019 4:23 PM) [place] [id number]
[2019-05-16] MEDS ORDERED: IV NORMAL SALINE 1000ML BAG 1,000 ML IV ONE (16:30)
[2019-05-16] MEDS ORDERED: KETOROLAC 30 MG/ML VIAL. IV ONE (16:30)
[2019-05-16 16:32] LABS: ALBUMIN 4.2 g/dL (3.4-5.0); ALBUMIN/GLOBULIN RATIO 1.2 (1.0-1.7); TOTAL BILIRUBIN 0.3 mg/dL (0.2-1.0); TOTAL PROTEIN 7.7 g/dL (6.4-8.2)
[2019-05-16 16:34] LABS: % BANDS 3 % (0-9); % LYMPHS 6 % (24-48); % MONOS 1 % (0-10); % SEGS 90 % (35-66); PLT ESTIMATE ADEQUATE (ADEQUATE)
[2019-05-16 17:00] VITALS: BP 137/86
[2019-05-16] MEDS ORDERED: DOXY100C2 PO (17:06)
== END 2019-05-16 17:20 | disposition home or self-care (01) ==
LOC: ER 15:35
DX: J45.909 Unspecified asthma, uncomplicated (principal); R07.89 Other chest pain; I10 Essential (primary) hypertension; F17.200 Nicotine dependence, unspecified, uncomplicated
CPT/HCPCS: 36415; 71046; 80053; 84484; 85007; 85025; 85379; 93005; 96374; 99285; J1885; J7030; 96361